=== PATIENT | male | born 1970 | race Caucasian/White ===

== ENCOUNTER 2018-10-30 08:01 | Emergency (ER) | payer OTHER, SELFPAY ==
[2018-10-30 08:01] VITALS: BP 120/86; PULSE 96; RESP 18; TEMP 36.8; O2SAT 98; BMI 37.5
--- NOTE | 2018-10-30 08:12 | EKG12_ITS ---
Test Reason : WEAKNESS Blood Pressure : / mmHG Vent. Rate : 082 BPM Atrial Rate : 082 BPM P-R Int : 166 ms QRS Dur : 092 ms QT Int : 350 ms P-R-T Axes : 028 044 037 degrees QTc Int : 408 ms Normal sinus rhythm Normal ECG Confirmed by SILVESTRE KUMAR, DOE ([id number]), assignment editor XAVIER TOPETE ([id number]) on 11/05/2018 8:50:10 AM Referred By: JJ Confirmed By:DOE RIVERS MD
--- NOTE | 2018-10-30 08:13 | US_ITS ---
STUDY: ABDOMINAL ULTRASOUND - RIGHT UPPER QUADRANT REASON FOR VISIT: Male, 48 years old. Nausea. Abdominal pain. TECHNIQUE: Ultrasound evaluation of the right upper quadrant was performed with real-time and static swanson-scale imaging. TECHNICAL QUALITY: Adequate. COMPARISON: Comparison is made with prior ultrasound examination dated August 06, 2009. FINDINGS: Liver: The liver measures 16.0 cm. There is increased echogenicity consistent with fatty infiltration. The bile ducts are within normal limits. There is hepatic color flow. The direction of portal flow is hepatopetal. There is no demonstrated mass lesion. Gallbladder: Normal distended gallbladder. The gallbladder wall measures 2.3 mm. There is a negative sonographic Fraser's sign. There is no pericholecystic fluid. There are no gallstones. Common Bile Duct (C.B.D.): The common bile duct measures 3.0 mm. Pancreas: Limited visualization of the pancreas due to overlying bowel gas. No obvious mass lesion is seen. Right Kidney: Normal size of the right kidney. The right kidney measures 10.9 cm x 5.1 cm x 4.5 cm. Normal renal cortex. The right cortex measures 1.9 cm. There is no demonstrated renal mass or cyst. There is no right hydronephrosis. US/Gallbladder IMPRESSION: Fatty infiltration of the liver. Electronically Signed: Juan Ramon Marrufo, at 9:54 EST , Service support ,
[2018-10-30] MEDS: 0.9% Normal Saline 1,000 ML 1000 ML IV (08:29)
[2018-10-30] MEDS: Ketorolac 15 MG/ML Vial IV (08:29)
[2018-10-30] MEDS: Ondansetron 4 MG/2 ML Vial IV (08:29)
[2018-10-30 08:30] VITALS: PULSE 84; RESP 18; O2SAT 98
[2018-10-30 08:42] LABS: Absolute Lymphocyte Count 1.54 X10^3/ul (0.83-4.51); Absolute Neutrophil Count 4.7 X10^3/uL (2.0-7.7); Basophil# 0.03 X10^3/uL; Basophil% 0.4 % (0-1); Eosinophil# 0.38 X10^3/uL; Eosinophils% 5.2 % (0-5); Hemoglobin 16.1 g/dl (13.0-16.5); Lymphocyte # 1.54 X10^3/ul (4.0); Lymphocyte % 21.3 % (19-41); Mean Corp Hgb Conc 32.2 g/gl (32-36); Mean Corpuscular Hgb 28.2 pg (27.0-32.0); Mean Corpuscular Volume 87.6 fL (80-94); Mean Platelet Vol. 10.9 fl (6.2-12.0); Monocyte# 0.58 X10^3/uL; Neutrophil # 4.69 X10^3/uL (2.7-7.7); Neutrophil % 64.8 % (47-70); POSITIVE COUNT NO; POSITIVE DIFFERENTIAL NO; POSITIVE MORPHOLOGY NO; Platelet Count 227 K/mm3 (150-450); RBC Distribution Width SD 41.1 fl (35.1-43.9); Red Blood Count 5.71 M/mm3 (4.6-6.2); White Blood Count 7.2 K/mm3 (4.4-11.0)
--- NOTE | 2018-10-30 08:59 | ED.VISSUMM ---
- ER Visit Summary Date of Service: 10/30/18 Chief Complaint: Abdominal pain, nausea, paresthesias History of Present Illness: The patient is a 48 M presents the emergency department multiple complaints. Patient states over the past 2 days, he is just not felt well. He states that yesterday, he had some tightness in his upper body. He states that he had tingling in his fingers and pain in his midepigastric area. Today, the pain has moved more towards his upper abdomen. He is been nauseated without vomiting. He does not think that he had fever. He denies any chills or sweats. He states that he did take his blood pressure at home and it was 180 systolic. He has no history of hypertension. Physical Examination: Vital signs reviewed General: Well-nourished, well-developed Head: Normocephalic, atraumatic Eyes: Pupils equal and reactive, extraocular muscles intact Neck, supple, no lymphadenopathy Heart: Regular rate and rhythm Respiratory: No distress, clear bilaterally Abdomen: Soft, mildly tender in the right upper quadrant without rebound or guarding, nondistended, no peritoneal signs Back: Nontender Extremities: Nontender, no edema, no cords Skin: Normal color no rash Neuro: Alert and oriented, no focal or lateralizing deficits Test Results: [] Emergency Department Course and Treatment: The patient symptoms do seem GI in nature. He does have nausea, sharp pain in his abdomen, and it moves towards his right upper quadrant. IV was established. Patient was given Zofran and Toradol. He was given fluids. He did have some improvement of his pain. With his right upper quadrant pain and nausea did want to rule out biliary colic or cholecystitis. Ultrasound was obtained. This is unremarkable. His LFTs were normal. His labs were unremarkable. He was still having pain. I did want to also rule out retrocecal appendix. Patient underwent CT of the abdomen and pelvis. His appendix is normal. He does have some nonspecific lymph nodes within the abdomen. My suspicion is that he is likely experiencing a viral illness. His repeat exam is soft and nontender. At this time, I do feel it is safe for outpatient therapy. Treatment Plan: [] Disposition: Discharge Impression: 1. Abdominal pain 2. Nausea This note was generated with [employer] software. It may contain incorrect words, spelling, and punctuation that were not noted in review of the chart prior to signing ED Disposition - Plan for ED Patient: Instructions: ED Weakness [facility] Prescriptions: Ondansetron [Zofran Odt] 4 mg PO Q8H PRN PRN #10 tab PRN Reason: Nausea Dicyclomine HCl [Bentyl] 20 mg PO TIDAC #20 cap Referrals: Francisco Javier Burt MD [Primary Care Provider] -
[2018-10-30 09:04] LABS: AST(SGOT) 20 U/L (15-37); Alanine Aminotransfer ALT/SGPT 43 U/L (16-61); Albumin, Serum 3.8 g/dL (3.2-5.0); Alkaline Phosphatase 96 U/L (45-117); Anion Gap 9 (5-15); BUN 12 mg/dL (7-18); BUN/Creat Ratio 10.3 RATIO (10-20); Bilirubin, Direct 0.18 mg/dL (0.00-0.30); Calcium,Total 8.8 mg/dL (8.5-10.1); Chloride 107 mmol/L (98-107); Creatinine, Serum 1.17 mg/dL (0.70-1.30); EST Glomerular Filtration Rate 70 mL/min (>60); Est Glom Filt Rate - Afr Amer 85 mL/min (>60); Estimated Creatinine Clearance 85.36 ml/min; Globulin 3.7 g/dL (2.2-4.2); Glucose 106 mg/dL (74-106); Lipase 136 U/L (73-393); Potassium 4.3 mmol/L (3.5-5.1); Protein, Total 7.5 g/dL (6.4-8.2); Sodium Level 141 mmol/L (136-145)
[2018-10-30 09:40] VITALS: BP 112/70; PULSE 81; RESP 21; O2SAT 98
[2018-10-30 10:20] VITALS: BP 134/86; PULSE 74; RESP 21; O2SAT 98
--- NOTE | 2018-10-30 10:30 | CT_ITS ---
STUDY: CT ABDOMEN AND PELVIS WITH CONTRAST REASON FOR EXAM: Male, 48 years old. Weakness. Numbness. RADIATION DOSAGE (If Supplied By Facility): CTDIvol = ( 17.07 ) mGy, DLP = ( 1370.21 ) mGycm TECHNIQUE: Transaxial images were obtained from the dome of the diaphragm to the symphysis pubis without oral contrast. Isovue 300 100 IV was administered. Sagittal and coronal images were reconstructed. Individualized dose optimization techniques were used for this CT. COMPARISON: Comparison is made with prior examination dated December 27, 2011. FINDINGS: Small calcified granuloma in the right lower lobe. The visualized portions of the heart are within normal limits. There is decreased attenuation of the liver consistent with steatosis. Normal gallbladder and extrahepatic biliary system. Normal spleen. Normal pancreas. Normal bilateral adrenal glands. Normal right kidney. Normal left kidney. There is a small hiatal hernia. Normal small intestine. Normal colon. The appendix is visualized and appears normal. Normal abdominal aorta. Normal inferior vena cava. There is borderline retroperitoneal lymphadenopathy with enlarged nodes no greater than 10mm in the short axis diameter. Normal urinary bladder. Normal abdominal wall. Normal osseous structures. CT/Abdomen/Pelvis W IV Cont ONLY IMPRESSION: Fatty infiltration of the liver. Electronically Signed: Juan Ramon Marrufo, at 11:23 EST , Service support ,
[2018-10-30 11:39] VITALS: BP 112/78; PULSE 78; RESP 15; RESP 16; O2SAT 99
== END 2018-10-30 11:41 | disposition home or self-care (01) ==
LOC: ED 08:20
PROVIDERS: Emergency Provider Emergency Medicine; Family Provider Family Medicine; PCP Family Medicine
DX: R10.11 Right upper quadrant pain (principal); R11.0 Nausea; R20.2 Paresthesia of skin
CPT/HCPCS: 74177; 76705; 80048; 80076; 83690; 84484; 85025; 93005; 96361; 96374; 96375; 99284; J7030; Q9967; J2405

== ENCOUNTER 2019-09-08 06:57 | Day surgery (SDC) | payer OTHER, SELFPAY ==
[2019-09-08 07:14] VITALS: BP 129/79; PULSE 77; RESP 16; TEMP 36.2; O2SAT 100; BMI 37.5
[2019-09-08] MEDS: Lactated Ringers 1,000 ML 100 ML IV (07:31)
[2019-09-08] MEDS: Cefazolin 2 GM in 0.9% Normal Saline 100 ML IV (08:57)
[2019-09-08] MEDS: Betamethasone/Betamethasone 30 MG/5 ML Vial (09:12)
[2019-09-08] MEDS: Epinephrine (1 mg/ml) 1 MG/ML VIAL (09:18)
[2019-09-08] MEDS: Bupiv/Epi 0.5% Mpf 30 ML Vial (09:41)
[2019-09-08 09:50] VITALS: BP 129/79; BP 132/82; PULSE 78; RESP 16; TEMP 37.1; O2SAT 93
[2019-09-08 10:00] VITALS: BP 129/79; BP 132/89; PULSE 69; RESP 18; O2SAT 94
[2019-09-08 10:15] VITALS: BP 129/75; BP 129/79; PULSE 79; RESP 16; O2SAT 95
[2019-09-08 10:28] VITALS: BP 129/79; BP 132/76; PULSE 75; RESP 16; TEMP 36.8; O2SAT 97
[2019-09-08 11:17] VITALS: BP 129/79
--- NOTE | 2019-09-08 11:51 | OP.PCM_ITS ---
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 Right knee: OA Surgery/Procedure Performed:: Diagnostic and operative arthroscopy left knee. 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 Procedure Description: The patient was greeted in the preoperative area. The [left ] knee was marked with surgical marker. Preoperative antibiotics were administered. The patient was then taken to the operating suite and placed in a supine position on operating room table. After adequate anesthesia was obtained and airway was secured a well-padded tourniquet was placed on patient's affected extremity. Leg was then prepped and draped in usual sterile fashion. Surgical timeout was performed and confirmed with all present and surgery was commenced. Standard anteromedial anterolateral portals were made and a 30? arthroscope was then inserted into the knee. [ ]. The patellofemoral joint showed focal grade 3 chondromalacia of the patella and diffuse grade 3 chondromalacia of the trochlea. An arthroscopic shaver was used to perform a chondroplasty on the patella and trochlea, smoothing the roughened articular cartilage. The medial compartment was entered. There was an inner 1/3, multilayered tear of the posterior and middle 1/3 of the medial meniscus. The was diffuse grade 3 and focal grade 4 chondromalacia of the medial femoral condyle. There were multiple cartilaginous loose bodies in the medial compartment. the largest of these was 5 mm x 5 mm. The ACL and PCL were probed and found to be intact. The lateral compartment showed no pathology of the meniscal or articular carti [place]. Straight basket forceps were used to perform a partial medial meniscectomy. The meniscal fragments were removed with a shaver and the meniscus was smoothed to a firm and stable rim. The shaver was the used to remove the multiple loose bodies. Subsequently, the shaver was used to perform a chondroplasty on the medial femoral condyle. Under sterile conditions, the right knee was injected with4 cc of 1% lidocaine and 2 cc of Celestone Soluspan. At this point all instruments were removed. Arthroscopic portals were closed in a standard fashion. 30 cc of 0.5% Marcaine was then injected into the knee. Well-padded nonadherent dressing was applied and secured with an Shashi wrap. Tourniquet was deflated and patient was taken to the recovery room in stable condition. Anesthesiologist: Sj Lopes - \ - Admit VTE Documentation VTE Present on Admission: No VTE Mechan Device Prophylaxis: SCD's, Thigh High CAITLIN Hose VTE Pharm Prophylaxis ordered?: No Reason prophylaxis not ordered:: Treatment Not Indicated
== END 2019-09-08 11:22 | disposition home or self-care (01) ==
LOC: SDC 06:57 → AC 06:59
PROVIDERS: Family Provider Family Medicine; PCP Family Medicine; Referring Provider Orthopaedic Surgery; Visit Provider Orthopaedic Surgery
PROC: (CPT 29870; principal; 2019-09-08 08:55)
DX: S83.242A Other tear of medial meniscus, current injury, left knee, initial encounter (principal); X58.XXXA Exposure to other specified factors, initial encounter; M94.262 Chondromalacia, left knee; M17.0 Bilateral primary osteoarthritis of knee; E66.9 Obesity, unspecified; Z68.37 Body mass index [BMI] 37.0-37.9, adult
CPT/HCPCS: 20610; 29881; J7120; J0702; J2405

== ENCOUNTER → 2019-09-09 15:29 | Outpatient (CLI) | payer OTHER, SELFPAY ==
[2019-09-08 07:14] VITALS: BMI 37.5
--- NOTE | 2019-09-09 15:53 | VDLE_ITS ---
Reason For Study: Pain in left leg Procedure LEFT Exam performed in department. GSV is normal. A preliminary report was called and/or faxed CFV is compressible, spontaneous, phasic, to Dayna. competent, and demonstrates normal augmentation. FV is compressible, spontaneous, phasic, competent and demonstrates normal augmentation. POP V is compressible, spontaneous, phasic, competent and demonstrates normal augmentation. T/P Trunk is compressible. PTV is compressible. LT PerV is compressible. Interpretation Summary Deep veins of the left lower extremity are patent and compressible segmentally. There is no evidence of left lower extremity deep vein thrombosis. Valvular competence appears intact within the proximal deep venous system on the left . The left great saphenous vein appears patent and compressible segmentally. Ordering Physician: Ruddy Mcintosh Referring Physician: Francisco Javier Burt Performed By: Johnna Purcell RVT
== END ==
PROVIDERS: Family Provider Family Medicine; PCP Family Medicine; Referring Provider Orthopaedic Surgery; Visit Provider Orthopaedic Surgery
DX: M79.605 Pain in left leg (principal)
CPT/HCPCS: 93971